=== PATIENT | female | born 1995 | race Caucasian/White ===

== ENCOUNTER 2023-08-14 16:08 | Emergency (ER) | payer OTHER ==
[2023-08-14 16:26] VITALS: BP 131/84; O2SAT 100
[2023-08-14] MEDS: ACETAMINOPHEN 325 MG TABLET PO STA (17:06)
--- NOTE | 2023-08-14 17:08 | XRAY Report ---
PROCEDURE: Ankle 3+V LT INDICATIONS: Trauma/twisTED L ANKLE TECHNIQUE: 3 views of the ankle were acquired. COMPARISON: None. FINDINGS: Bones: Ossification inferior to the lateral malleolus is consistent with remote trauma. There is a v ague calcification or ossification inferior to that, which may potentially represent a tiny acute avu lsion. Ankle mortise is normally aligned. No suspicious bony lesions. Soft tissues: Positive tibiotalar joint effusion. Achilles tendon appears normal. Impressive later al soft tissue swelling. IMPRESSION: 1. Impressive lateral soft tissue swelling. 2. Ankle joint effusion. 3. Possible tiny avulsion fragment laterally. Comment: Nonemergent ankle MRI may potentially be helpful. Reviewed by: Ty Graham MD on 08/14/2023 5:07 PM PDT Approved by: Ty Graham MD on 08/14/2023 5:07 PM PDT Station ID: [id number]
--- NOTE | 2023-08-14 17:17 | ED Physician Documentation ---
PD HPI LOWER EXT INJURY - Stated complaint Stated Complaint: L ANKLE INJ - Chief complaint Chief Complaint: Ext Problem - Additional information Additional information: 28-year-old female presents emergency department for left ankle injury. Patient said that she was skateboarding she lost her balance and inversely rolled her left ankle. She felt immediate pain to the lateral malleolus. She not hit her head did not lose consciousness. She presents with significant swelling to the left lateral ankle no bruising no abrasions able to move all left toes but limited range of motion to the left foot due to swelling and pain. PD PAST MEDICAL HISTORY - Past Medical History Past Medical History: No Cardiovascular: None Respiratory: None Neuro: None Endocrine/Autoimmune: None GI: None NEEDLE LOOM WEAVER: None : None HEENT: None Psych: None Musculoskeletal: None Derm: None - Past Surgical History Past Surgical History: No - Present Medications Home Medications: Ambulatory Orders Medication Instructions Recorded Confirmed No Known Home Medications 08/14/23 08/14/23 - Allergies Allergies/Adverse Reactions: Allergies Allergy/AdvReac Type Severity Reaction Status Date / Time No Known Drug Allergies Allergy Verified 08/14/23 16:29 - Social History Does the pt smoke?: No Smoking Status: Never smoker Does the pt drink ETOH?: Yes Does the pt have substance abuse?: No - Immunizations Immunizations are current?: Yes - POLST Patient has POLST: No PD ED PE NORMAL - Vitals Vital signs reviewed: Yes - General General: Alert and oriented X 3, No acute distress, Well developed/nourished - HEENT HEENT: PERRL - Derm Derm: Other (Left ankle bruising) - Extremities Extremities: Other (Significant swelling to the left lateral malleolus. No bruising developing as patient is sitting here positive dorsalis pedis pulse tenderness with palpation to the left lateral malleolus tenderness with flexion extension) - Psych Psych: Normal mood, Normal affect Results - Vitals Vitals: Vital Signs - 24 hr 08/14/23 16:12 Temperature 36.8 C Heart Rate 85 Respiratory 16 Rate Blood Pressure 131/84 H O2 Saturation 100 Oxygen O2 Source Room air - Rads (name of study) Left ankle x-ray Relevant Findings:: Final report received, EMP independent interpretation of test, Other (Severe left lateral soft tissue swelling, left ankle effusion, possible tiny avulsion fragment to the lateral malleolus.) PD Medical Decision Making - ED course ED course: 28-year-old female presents with left lateral malleolus pain and tenderness. X- rays were complete and it shows a left ankle effusion with possible tiny avulsion fragment to the lateral malleolus. It also shows significant left lateral tissue swelling. I would had to place the patient in a walking boot patient was told to be nonweightbearing and to have repeat x-rays done in 7 to 10 days for further evaluation and to continue to take Tylenol ibuprofen for any pain or discomfort she was offered something stronger but she said that she felt like this was going to work for now she plans on following up with primary care provider she already has crutches she understands discharge teaching and understands return precautions. Departure - Departure Disposition: 01 Home, Self Care Clinical Impression: Left ankle sprain Qualifiers: Encounter type: initial encounter Involved ligament of ankle: unspecified ligament Qualified Code(s): S93.402A - Sprain of unspecified ligament of left ankle, initial encounter Instructions: ED Sprain Ankle Comments: Thank you for trusting us with your care. We have completed x-rays of your left ankle and we are seeing a possible tiny avulsionFragment on the lateral portion of your ankle. See x-ray results below. We are sending you home with a walking boot you already have crutches. I would limit putting any weight on it until you can have repeat x-rays in 7 to 10 days with your primary care provider. Ice for 20 minutes at a time 1 hour off. Alternate between Tylenol and ibuprofen for pain and discomfort make sure that you are keeping elevated above your heart at nighttime when you are sleeping or anytime you are at rest. FINDINGS: Bones: Ossification inferior to the lateral malleolus is consistent with remote trauma. There is a vague calcification or ossification inferior to that, which may potentially represent a tiny acute avulsion. Ankle mortise is normally aligned. No suspicious bony lesions. Soft tissues: Positive tibiotalar joint effusion. Achilles tendon appears normal. Impressive lateral soft tissue swelling. IMPRESSION: 1. Impressive lateral soft tissue swelling. 2. Ankle joint effusion. 3. Possible tiny avulsion fragment laterally. Comment: Nonemergent ankle MRI may potentially be helpful. Forms: PCP List
== END 2023-08-14 17:30 | disposition home or self-care (01) ==
LOC: ED 16:08
DX: S93.402A Sprain of unspecified ligament of left ankle, initial encounter (principal); X50.1XXA Overexertion from prolonged static or awkward postures, initial encounter; Y93.51 Activity, roller skating (inline) and skateboarding
CPT/HCPCS: 99284